=== PATIENT | male | born 1995 | race Caucasian/White ===

== ENCOUNTER 2016-12-28 16:02 | Emergency (ER) | payer MEDICAID, OTHER ==
[~2016-12-28] VITALS: Ht 180.3 cm; Wt 143.0 kg
[~2016-12-28 16:02] MED LIST: AUGM875T PO
[2016-12-28 16:10] VITALS: BP 151/102; PULSE 93; RESP 16; TEMP 98.2; O2SAT 96
--- NOTE | 2016-12-28 16:32 | PD ---
HPI . impacted wisdom tooth Chief Complaint: Oral / Dental Pain or Problem Time Seen by Provider: 16:31 Travel History International Travel<30 days: No Contact w/Intl Traveler<30days: No Traveled to known affect area: No History of Present Illness HPI 21-year-old male with no significant past medical history and who is actually not having any issues here with needing to meet his share of cost to have a dental procedure. Patient says he was told to come in to the emergency department so that he would be able to meet his share of cost to have a dental procedure done on his lower left wisdom tooth. He denies any kind of pain or issues with this tooth. He is literally here just to meet his share of cost to move forward with a dental procedure. PFSH Past Medical History Medical History: Denies Significant Hx Diminished Hearing: No Tetanus Vaccination: < 5 Years Influenza Vaccination: Yes Past Surgical History Surgical History: No Previous Surgery Social History Alcohol Use: No Tobacco Use: No Substance Use: No Allergies-Medications (Allergen,Severity, Reaction): Coded Allergies: No Known Allergies (Unverified , 12/28/16) Reported Meds & Prescriptions Reported Meds & Active Scripts Active No Active Prescriptions or Reported Medications Review of Systems General / Constitutional: No: Fever Eyes: No: Visual changes HENT: No: Headaches Cardiovascular: No: Chest Pain or Discomfort Respiratory: No: Shortness of Breath Gastrointestinal: No: Abdominal Pain Genitourinary: No: Dysuria Musculoskeletal: No: Pain Skin: No Rash Neurologic: No: Weakness Psychiatric: No: Depression Endocrine: No: Polydipsia Hematologic/Lymphatic: No: Easy Bruising Physical Exam Narrative GENERAL: AAO x 3, no acute distress, Well-nourished, well-developed patient. SKIN: Warm and dry. No visible rashes or bruising. HEAD: Normocephalic and atraumatic. EYES: No scleral icterus. No injection or drainage. ENT: No nasal drainage noted. Mucous membranes pink. Airway patent. partially Impacted #17, no infection, no edema, no erythema, no gumline abnormality NECK: Supple, trachea midline. No JVD. CARDIOVASCULAR: Regular rate and rhythm without murmurs, gallops, or rubs. RESPIRATORY: Breath sounds equal bilaterally. No accessory muscle use. No rhonchi or rales. GASTROINTESTINAL: Abdomen soft, non-tender, nondistended. EXTREMITIES: No cyanosis or edema. BACK: Nontender without obvious deformity. No CVA tenderness. PSYCH: AAO x 3, normal affect. Data Data Last Documented VS Vital Signs Date Time Temp Pulse Resp B/P Pulse Ox O2 Delivery O2 Flow Rate FiO2 12/28/16 16:42 80 16 157/90 98 Room Air 12/28/16 16:10 98.2 MDM Medical Decision Making Medical Screen Exam Complete: Yes Emergency Medical Condition: No Differential Diagnosis chronic tooth pain, impacted wisdom tooth, less likely oral abscess Narrative Course Patient seen and examined. He does not have any acute issues. I discussed this with Dr. Bridges. His bp is slightly elevated 157/90 (recheck) A medical screening exam was performed: At the time of evaluation the presenting medical condition was determined not to be of an emergent nature. The patient was given the option of receiving additional care, but declined. Patient was given options for additional community resources from which to obtain care. The Patient Has Been advised to seek medical attention for their presenting complaint. The patient has been advised to return to the ER at any time if an emergent condition develops. Diagnosis Primary Impression: Encounter for medical screening examination Scripts No Active Prescriptions or Reported Meds Condition: Stable Ruby Woodard Dec 28, 2016 16:32
[2016-12-28 16:42] VITALS: BP 157/90; PULSE 80; RESP 16; O2SAT 98
== END 2016-12-28 16:50 | disposition left against medical advice (07) ==
LOC: PHEFT 16:02
DX: Z13.9 Encounter for screening, unspecified (principal)
CPT/HCPCS: 99281

== ENCOUNTER 2017-02-24 22:25 | Emergency (ER) | payer MEDICAID ==
[~2017-02-24] VITALS: Ht 180.3 cm; Wt 140.0 kg
[2017-02-24 22:26] VITALS: BP 144/88; PULSE 107; RESP 18; TEMP 98.2; O2SAT 98
[2017-02-25 00:20] VITALS: BP 138/84; PULSE 97; RESP 16; O2SAT 100
[2017-02-25] MEDS ORDERED: SODIUM CHLORIDE 0.9% FLUSH 10 ML FLUSH IVF PRN (00:30)
[2017-02-25] MEDS ORDERED: SODIUM CHLOR 0.9% 1000 ML INJ 1,000 ML IV ONE (00:30)
[2017-02-25 00:32] LABS: AUTOMATED NEUTROPHIL # 5.4 TH/MM3 (1.8-7.7); BASOPHIL % 0.6 % (0.0-2.0); EOSINOPHIL # 0.1 TH/MM3 (0-0.4); EOSINOPHIL % 1.2 % (0.0-4.0); HEMO FLAGS DIFF FINAL; LYMPH % 24.7 % (9.0-44.0); LYMPHOCYTE # 2.1 TH/MM3 (1.0-4.8); MEAN CELL VOLUME 81.3 FL (80.0-100.0); MEAN CORPUSCULAR HEMOGLOBIN 27.2 PG (27.0-34.0); MEAN CORPUSCULAR HGB CONC 33.5 % (32.0-36.0); MONO % 8.7 % (0.0-8.0); NEUT % 64.8 % (16.0-70.0); PLATELET COUNT 249 TH/MM3 (150-450); RED BLOOD COUNT 5.66 MIL/MM3 (4.50-5.90); RED CELL DISTRIBUTION WIDTH 13.7 % (11.6-17.2); WHITE BLOOD COUNT 8.3 TH/MM3 (4.0-11.0)
[2017-02-25 00:52] LABS: ALT (GPT) 36 U/L (9-52); ANION GAP 8 MEQ/L (5-15); AST (GOT) 22 U/L (15-39); BICARBONATE 30.1 MEQ/L (21.0-32.0); BLOOD UREA NITROGEN 5 MG/DL (7-18); CHLORIDE 103 MEQ/L (98-107); GLOMERULAR FILTRATION RATE 95 ML/MIN (>89); POTASSIUM 3.8 MEQ/L (3.5-5.1); SODIUM (NA) 141 MEQ/L (136-145)
[2017-02-25 00:56] LABS: ALKALINE PHOSPHATASE 124 U/L (45-117); TOTAL BILIRUBIN ADULT 0.6 MG/DL (0.2-1.0)
--- NOTE | 2017-02-25 02:13 | RADRPT ---
EXAM DATE/TIME: 02/25/2017 00:49 [facility] COMPARISON: No previous studies available for comparison. INDICATIONS : Shortness of breath. MEDICAL HISTORY : None. SURGICAL HISTORY : None. ENCOUNTER: Initial ACUITY: 1 day PAIN SCORE: 0/10 LOCATION: Bilateral chest FINDINGS: PA and lateral views of the chest demonstrate the lungs to be symmetrically aerated without evidence of mass, infiltrate or effusion. The cardiomediastinal contours are unremarkable. Osseous structure s are intact.CONCLUSION: No acute disease. Noe Salazar MD on February 25, 2017 at 1:34 Board Certified Radiologist. This report was verified electronically.
[2017-02-25] MEDS ORDERED: NAPR500 PO (02:41)
--- NOTE | 2017-02-25 02:41 | PD ---
HPI Chief Complaint: Chest Pain Time Seen by Provider: 00:08 Travel History International Travel<30 days: No Contact w/Intl Traveler<30days: No Traveled to known affect area: No History of Present Illness HPI Is a 21-year-old male who presents to the emergency department complaining of right sided chest discomfort. Symptoms started at work. They're worse with taking a deep breath. 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 He's never really had similar symptoms. He states he was feeling a little bit unwell when he got his right sided chest pains and went to go sit down. After sitting down he had a brief blacking out episode. He then called for a ride to bring him to the emergency department. No palpitations. No leg swelling or leg pain. No real shortness of breath although he does have pain worse with deep breathing. He otherwise has been feeling generally well and healthy. No history of DVT or PE. No family history of DVT. No history of IV drug use. No other complaints. History Past Medical History Medical History: Denies Significant Hx Past Surgical History Surgical History: No Previous Surgery Social History Alcohol Use: No Tobacco Use: No Allergies-Medications (Allergen,Severity, Reaction): Coded Allergies: No Known Allergies (Unverified , 02/24/17) Reported Meds & Prescriptions Reported Meds & Active Scripts Active No Active Prescriptions or Reported Medications Review of Systems Except as stated in HPI: all other systems reviewed are Neg Physical Exam Narrative GENERAL: Well-appearing 21-year-old man, no acute distress. SKIN: Focused skin assessment warm/dry. HEAD: Atraumatic. Normocephalic. EYES: Pupils equal and round. No scleral icterus. No injection or drainage. ENT: No nasal bleeding or discharge. Mucous membranes pink and moist. NECK: Trachea midline. No JVD. CARDIOVASCULAR: Regular rate and rhythm. No murmur appreciated. RESPIRATORY: No accessory muscle use. Clear to auscultation. Breath sounds equal bilaterally. GASTROINTESTINAL: Abdomen soft, non-tender, nondistended. Hepatic and splenic margins not palpable. MUSCULOSKELETAL: No obvious deformities. No clubbing. No cyanosis. No edema. NEUROLOGICAL: Awake and alert. No obvious cranial nerve deficits. Motor grossly within normal limits. Normal speech. PSYCHIATRIC: Appropriate mood and affect; insight and judgment normal. Data Data Last Documented VS Vital Signs Date Time Temp Pulse Resp B/P Pulse Ox O2 Delivery O2 Flow Rate FiO2 02/25/17 00:20 97 16 138/84 100 Room Air 02/24/17 22:26 98.2 Orders Electrocardiogram (02/25/17 00:16) Complete Blood Count With Diff (02/25/17 00:16) Comprehensive Metabolic Panel (02/25/17 00:16) D-Dimer (02/25/17 00:16) Troponin I (02/25/17 00:16) Ecg Monitoring (02/25/17 00:16) Iv Access Insert/Monitor (02/25/17 00:16) Oximetry (02/25/17 00:16) Oxygen Administration (02/25/17 00:16) Sodium Chloride 0.9% Flush (Ns Flush) (02/25/17 00:30) Chest, Pa & Lat (02/25/17 ) Sodium Chlor 0.9% 1000 Ml Inj (Ns 1000 M (02/25/17 00:30) Labs Laboratory Tests Test 02/25/17 00:00 White Blood Count 8.3 TH/MM3 Red Blood Count 5.66 MIL/MM3 Hemoglobin 15.4 GM/DL Hematocrit 46.0 % Mean Corpuscular Volume 81.3 FL Mean Corpuscular Hemoglobin 27.2 PG Mean Corpuscular Hemoglobin 33.5 % Concent Red Cell Distribution Width 13.7 % Platelet Count 249 TH/MM3 Mean Platelet Volume 8.9 FL Neutrophils (%) (Auto) 64.8 % Lymphocytes (%) (Auto) 24.7 % Monocytes (%) (Auto) 8.7 % Eosinophils (%) (Auto) 1.2 % Basophils (%) (Auto) 0.6 % Neutrophils # (Auto) 5.4 TH/MM3 Lymphocytes # (Auto) 2.1 TH/MM3 Monocytes # (Auto) 0.7 TH/MM3 Eosinophils # (Auto) 0.1 TH/MM3 Basophils # (Auto) 0.0 TH/MM3 CBC Comment DIFF FINAL Differential Comment D-Dimer Quantitative (PE/DVT) 0.24 MG/L FEU Sodium Level 141 MEQ/L Potassium Level 3.8 MEQ/L Chloride Level 103 MEQ/L Carbon Dioxide Level 30.1 MEQ/L Anion Gap 8 MEQ/L Blood Urea Nitrogen 5 MG/DL Creatinine 1.00 MG/DL Estimat Glomerular Filtration 95 ML/MIN Rate Random Glucose 76 MG/DL Calcium Level 9.3 MG/DL Total Bilirubin 0.6 MG/DL Aspartate Amino Transf 22 U/L (AST/SGOT) Alanine Aminotransferase 36 U/L (ALT/SGPT) Alkaline Phosphatase 124 U/L Troponin I LESS THAN 0.02 NG/ML Total Protein 7.8 GM/DL Albumin 4.0 GM/DL [facility] Medical Decision Making Medical Screen Exam Complete: Yes Emergency Medical Condition: Yes Interpretation(s) LABS: CBC unremarkable. CMP unremarkable. Troponin negative. D-dimer negative. My review of EKG: Normal sinus rhythm at a rate of 96, normal axis, normal intervals, no acute ischemia. Chest x-ray: No acute disease. Differential Diagnosis Strain or sprain, pleurisy, pericarditis, PE, other Narrative Course Medical decision making INITIAL calls a 21-year-old man presents emergent department right sided chest pain, with a syncopal episode. He looks well. D-dimer is negative. I don't think he has a PE. Possible strain or sprain with a vagal response. I think he stable for outpatient follow-up. Diagnosis Primary Impression: Chest pain Additional Instructions: Take Naprosyn as needed for pain. Return to the emergency department for any worsening chest pain or trouble breathing. Med/Other Pt SpecificInfo: Prescription(s) given Scripts Naproxen (Naprosyn)500 Mg [id number] Mg PO BID PRN (PAIN SCALE 1 TO 10) #20 TAB Prov:Roni Taylor MD 02/25/17 Disposition: 01 DISCHARGE HOME Condition: Stable Roni Taylor MD February 25, 2017 02:41
--- NOTE | 2017-02-25 10:38 | EKG ---
Date Performed: 02/24/2017 Time Performed: 23:19:38 PTAGE: 21 years EKG: Sinus rhythm NORMAL ECG NO PREVIOUS TRACING DOCTOR: Cheryl Prince Interpretating Date/Time 02/25/2017 10:36:02
== END 2017-02-25 02:56 | disposition home or self-care (01) ==
LOC: NEPC 22:25
DX: R07.9 Chest pain, unspecified (principal)
CPT/HCPCS: 71020; 80053; 84484; 85025; 85379; 93005; 99284; J7030

== ENCOUNTER 2017-07-28 04:42 | Emergency (ER) | payer MEDICAID ==
[~2017-07-28] VITALS: Ht 180.3 cm; Wt 144.0 kg
[~2017-07-28 04:42] MED LIST changes: -AUGM875T PO; +NAPR500 PO
[2017-07-28 04:44] VITALS: BP 180/114; PULSE 81; RESP 16; TEMP 98.7; O2SAT 99
[2017-07-28 05:07] VITALS: BP 162/110
--- NOTE | 2017-07-28 05:15 | PD ---
HPI Chief Complaint: Oral / Dental Pain or Problem Time Seen by Provider: 05:08 Travel History International Travel<30 days: No Contact w/Intl Traveler<30days: No Traveled to known affect area: No History of Present Illness HPI Patient is a 21-year-old male presenting to the emergency department for evaluation of left lower wisdom tooth pain. He states his tooth is impacted. Patient states this has been ongoing since the beginning of the year. He states he's been trying to obtain an appointment with a dentist but it's difficult to find one who accepts his Medicaid. He denies any fevers, dysphasia, swelling. Patient brought medical records with him from the last time he was seen here as well as the empty Percocet bottle. [facility] Past Medical History Medical History: Denies Significant Hx Diminished Hearing: No Past Surgical History Surgical History: No Previous Surgery Social History Alcohol Use: No Tobacco Use: No Substance Use: No Allergies-Medications (Allergen,Severity, Reaction): Coded Allergies: No Known Allergies (Unverified , 07/28/17) Reported Meds & Prescriptions Reported Meds & Active Scripts Active Naprosyn (Naproxen) 500 Mg Tab 500 Mg PO BID PRN Review of Systems Except as stated in HPI: all other systems reviewed are Neg HENT: Positive: Dental Difficulties Physical Exam Narrative GENERAL: Obese, well-developed, alert male. Resting comfortably in no acute distress. SKIN: Warm and dry. HEAD: Normocephalic. MOUTH: Mucous membranes moist, no lesions, tongue and gums appear normal. Left lower third molar erupting through gumline, no erythema, exudate or edema noted. EYES: No scleral icterus. No injection or drainage. NECK: Supple, trachea midline. No JVD or lymphadenopathy. CARDIOVASCULAR: Regular rate and rhythm without murmurs, gallops, or rubs. RESPIRATORY: Breath sounds equal bilaterally. No accessory muscle use. GASTROINTESTINAL: Abdomen soft, non-tender, nondistended. MUSCULOSKELETAL: No cyanosis, or edema. BACK: Nontender without obvious deformity. No CVA tenderness. Data Data Last Documented VS Vital Signs Date Time Temp Pulse Resp B/P (MAP) Pulse Ox O2 Delivery O2 Flow Rate FiO2 07/28/17 05:07 162/110 (127) 07/28/17 04:44 98.7 81 16 99 Room Air MDM Medical Decision Making Medical Screen Exam Complete: Yes Emergency Medical Condition: Yes Medical Record Reviewed: Yes Interpretation(s) Vital Signs Date Time Temp Pulse Resp B/P (MAP) Pulse Ox O2 Delivery O2 Flow Rate FiO2 07/28/17 05:07 162/110 (127) 07/28/17 04:44 98.7 81 16 180/114 (136) 99 Room Air Differential Diagnosis Dentalgia versus dental caries versus impaction versus abscess versus other Narrative Course Patient is a 21-year-old morbidly obese male presenting for evaluation of chronic dental pain. Patient's blood pressure was elevated on arrival, it was reassessed and had trended down. The patient does not have a reported history of hypertension. Firstly patient was advised that he will need to follow up with a dentist for his chronic dental pain. It has been 10 months since the pain started and he had been evaluated in this emergency department in December. He was given a list of local dental clinics. He requested an injection of Toradol, he was advised to take [id number] ibuprofen 600-800 mg every 6-8 hours as needed for pain. Secondly he was advised to follow-up with a primary doctor for routine health care. He was advised that his blood pressure was elevated in the emergency department today. He was encouraged to monitor his blood pressure and record results to bring to his healthcare provider. He was encouraged to return to emergency department for any new or worsening acute symptoms. A medical screening exam was performed: At the time of evaluation the presenting medical condition was determined not to be of an emergent nature. The patient was given the option of receiving additional care, but declined. Patient was given options for additional community resources from which to obtain care. The Patient Has Been advised to seek medical attention for their presenting complaint. The patient has been advised to return to the ER at any time if an emergent condition develops. Diagnosis Primary Impression: Encounter for medical screening examination Condition: Stable Kymberly Thomas Tracy BARNES Jul 28, 2017 05:15
== END 2017-07-28 05:10 | disposition left against medical advice (07) ==
LOC: NEPD 04:42
DX: K08.89 Other specified disorders of teeth and supporting structures (principal)
CPT/HCPCS: 99281